=== PATIENT | female | born 1960 | race Two or more races ===

== ENCOUNTER → 2016-08-30 | Outpatient (CLI) | payer BC | LOC: BRMIMAGING 13:39 | PROVIDERS: ATTEND Family Medicine | DX: Z13.89 Encounter for screening for other disorder (principal) ==

== ENCOUNTER 2018-07-12 19:08 | Emergency (ER) | payer OTHER ==
--- NOTE | 2018-07-12 20:10 | EDPHY ---
H & P Time Seen by Provider: 07/12/18 19:59 HPI/ROS: Chief complaint: Left 4th finger tip laceration History of present illness: This is a 57-year-old female who presents for a left 4th finger tip laceration that occurred just prior to arrival. She was cutting watermelon when she struck the tip of her finger. Minimal bleeding controlled with a dressing. No report of abnormal coolness or paresthesias. Her tetanus is up-to-date. Smoking Status: Never smoked Physical Exam: General: Alert, nontoxic. Skin: 0.75 cm laceration to the tip of the left 4th finger. It does not involve the nail. Approximates well. Musculoskeletal: She is flexing and extending her finger in the DIP, PIP and MCP joint well. Vascular: Capillary refill brisk in the left 4th finger. Neurologic: Decreased sensation in the flap of skin on the tip of the finger otherwise sensation is intact with 2 point and light touch discrimination. Constitutional: Initial Vital Signs Temperature (C) 37.0 C 07/12/18 19:12 Heart Rate 72 07/12/18 19:12 Respiratory Rate 16 07/12/18 19:12 Blood Pressure 126/87 H 07/12/18 19:12 O2 Sat (%) 95 07/12/18 19:12 O2 Delivery Mode Room Air Allergies/Adverse Reactions: Penicillins Allergy (Verified 07/12/18 19:13) Sulfa (Sulfonamide Antibiotics) Allergy (Verified 07/12/18 19:13) Home Medications: Medication Instructions Recorded Levothyroxine Sodium 07/12/18 MDM/Departure - MDM Imaging Results: Imaging Impressions Finger X-Ray 07/12/18 20:05 Impression: Negative. No acute fracture or foreign body. Imaging: I viewed and interpreted images myself Procedures: Procedure: Laceration repair. Verbal consent was obtained from the patient. The 0.75 cm laceration on the left 4th finger was anesthetized in the usual fashion. The wound was irrigated, draped and explored to its base with a gloved finger. There were no deep structures involved. No tendon injury was identified. The wound was repaired with 6 0 Prolene, 4 simple interrupted sutures. The wound repair was simple. The procedure was performed by myself. ED Course/Re-evaluation: Patient seen under the supervision of my secondary supervising physician Dr. Abdoulaye Malhotra. Patient presents with a left 4th finger laceration. Vascularly intact. Decrease in sensation in the flap. X-rays negative. Wound is cleaned , repaired and dressed. She will be discharged home. She is to follow up with a hand doctor for recheck. Return precautions are given. Patient voiced understanding and agreement with plan. Differential Diagnosis: Included but not limited to laceration, foreign body contamination, deep structure injury - Depart Disposition: Home, Routine, Self-Care Clinical Impression: Finger laceration Qualifiers: Encounter type: initial encounter Finger: ring finger Damage to nail status: without damage Foreign body presence: without foreign body Laterality: left Qualified Code(s): S61.215A - Laceration without foreign body of left ring finger without damage to nail, initial encounter Condition: Good Instructions: Finger Laceration (ED), Stitches Removal (ED) Additional Instructions: Follow-up with her primary care doctor or a hand doctor for continued evaluation and care Keep wound clean with soap and water apply antibacterial ointment and a Band- Aid at least twice daily You can use ibuprofen or Tylenol as directed as needed for pain If symptoms worsen or new symptoms develop return to the emergency room for recheck Referrals: Kristin Woodard [Primary Care Provider] - As per Instructions Alon Luther MD [Medical Doctor] - As per Instructions
[2018-07-12 21:07] VITALS: BP 130/75
== END 2018-07-12 21:07 | disposition home or self-care (01) ==
PROC: 0HQGXZZ Repair Left Hand Skin, External Approach (ICD-10-PCS; principal; 2018-07-12)
DX: S61.215A Laceration without foreign body of left ring finger without damage to nail, initial encounter (principal); W27.4XXA Contact with kitchen utensil, initial encounter; Y93.G1 Activity, food preparation and clean up; Y92.000 Kitchen of unspecified non-institutional (private) residence as the place of occurrence of the external cause

== ENCOUNTER → 2018-08-07 | Outpatient (CLI) | payer OTHER | LOC: EMCIMAGING 08:42 | PROVIDERS: ATTEND Family Medicine | DX: Z03.89 Encounter for observation for other suspected diseases and conditions ruled out (principal) | CPT/HCPCS: 77066-PN ==